=== PATIENT | male | born 1965 | race Caucasian/White ===

== ENCOUNTER 2020-08-14 09:52 | Outpatient (REF) | payer MEDICAID, SELFPAY ==
[2020-08-14 10:47] LABS: COVID-19 Test Negative (Negative)
== END 2020-08-14 09:53 | disposition home or self-care (01) ==
LOC: HO.LAB 09:52
PROVIDERS: PCP Family Medicine; Visit Provider Internal Medicine
DX: Z20.828 Contact with and (suspected) exposure to other viral communicable diseases (principal)
CPT/HCPCS: 87635